=== PATIENT | male | born 1995 | race Caucasian/White ===

== ENCOUNTER 2021-01-14 17:52 | Inpatient (IN) | payer OTHER ==
[2021-01-14] MEDS ORDERED: IBUPROFEN 400 MG TABLET (FP) PO PRN (21:10)
[2021-01-14] MEDS ORDERED: ACETAMINOPHEN 325 MG TABLET (FP) PO PRN ×2 (21:10)
[2021-01-14] MEDS ORDERED: MENTHOL/PHENOL 1 EACH UD MM PRN (21:10)
[2021-01-14] MEDS ORDERED: MAGNESIUM CITRATE 300 ML BOTTLE PO PRN (21:10)
[2021-01-14] MEDS ORDERED: ONDANSETRON *ODT* 4 MG TABLET SL PRN (21:10)
[2021-01-14] MEDS ORDERED: MAG HYDROX/AL HYDROX/SIMETH 30 ML UNIT-DOSE CUP PO PRN (21:10)
[2021-01-14] MEDS ORDERED: BISMUTH SUBSALICYLATE 524 MG/30 ML UD PO PRN (21:10)
[2021-01-14] MEDS ORDERED: MAGNESIUM HYDROX 2400MG/30ML ORAL SUSPENSION 30 ML CUP PO PRN (21:10)
[2021-01-14] MEDS ORDERED: cloNIDine HCL 0.1 MG TABLET PO PRN (21:12)
[2021-01-14 22:51] VITALS: BMI 26.6
[2021-01-15] MEDS: MELATONIN 5 MG TABLETS PO SCH ×2 (00:55→22:06)
[2021-01-15] MEDS: THIAMINE HCL 100 MG TABLET (FP) PO SCH ×2 (00:55→22:06)
[2021-01-15] MEDS ORDERED: METHADONE HCL 10 MG TABLET (FOR DETOX USE ONLY) ONE (08:25)
[2021-01-15] MEDS ORDERED: METHADONE HCL 5 MG TABLET (FOR DETOX USE ONLY) ONE (08:25)
[2021-01-15] MEDS ORDERED: METHADONE (DETOX) 20 MG, METHADONE (DETOX) 5 MG PO ONE (10:00)
[2021-01-15] MEDS: PRENATAL VITAMINS W/ FOLIC ACID TABLET (FP) PO SCH (10:42)
[2021-01-15 12:02] LABS: HEMATOCRIT 39.9 % (35.4-49); HEMOGLOBIN 13.1 GM/dL (11.7-16.9); MCH 26.8 pg (25.7-33.7); MCHC 32.8 g/dl (32.0-35.9); MEAN CELL VOLUME 81.8 fl (80-96); PLATELET COUNT 223 K/MM3 (134-434); RBC 4.88 M/mm3 (4.00-5.60); RDW 14.8 % (11.9-15.9); WHITE BLOOD COUNT 7.9 K/mm3 (4.0-10.0)
[2021-01-15 12:13] LABS: POTASSIUM 4.2 mmol/L (3.5-5.1)
[2021-01-15 12:16] LABS: CALCIUM 9.3 mg/dL (8.5-10.1)
[2021-01-15 12:17] LABS: ALBUMIN 3.9 g/dl (3.4-5.0); BLOOD UREA NITROGEN 9.7 mg/dL (7-18)
[2021-01-15 12:20] LABS: CREATININE 0.8 mg/dL (0.55-1.3)
[2021-01-15 12:22] LABS: BILIRUBIN,TOTAL 0.5 mg/dL (0.2-1); TOT PROT 6.8 g/dl (6.4-8.2)
[2021-01-15] MEDS: NICOTINE POLACRILEX 2 MG GUM BUC PRN (18:30)
[2021-01-15] MEDS: METHOCARBAMOL 500 MG TABLET PO PRN (22:06)
[2021-01-15] MEDS: hydrOXYzine PAMOATE 25 MG CAPSULE (FP) PO PRN (22:06)
[2021-01-16] MEDS: NICOTINE POLACRILEX 2 MG GUM BUC PRN ×2 (08:45→12:58)
[2021-01-16] MEDS ORDERED: METHADONE HCL 10 MG TABLET (FOR DETOX USE ONLY) PO ONE (10:00)
[2021-01-16] MEDS: PRENATAL VITAMINS W/ FOLIC ACID TABLET (FP) PO SCH (10:43)
[2021-01-16] MEDS: hydrOXYzine PAMOATE 25 MG CAPSULE (FP) PO PRN (10:45)
[2021-01-16] MEDS: diazePAM 5 MG TABLET PO PRN ×3 (11:45→22:46)
[2021-01-16] MEDS: NICOTINE 21 MG/24 HOURS TOPICAL PATCH TD SCH (14:24)
[2021-01-16] MEDS: METHOCARBAMOL 500 MG TABLET PO PRN ×2 (18:09→23:30)
[2021-01-16] MEDS: MELATONIN 5 MG TABLETS PO SCH (22:46)
[2021-01-16] MEDS: THIAMINE HCL 100 MG TABLET (FP) PO SCH (22:46)
[2021-01-17] MEDS ORDERED: METHADONE HCL 5 MG TABLET (FOR DETOX USE ONLY) ONE (09:15)
[2021-01-17] MEDS ORDERED: METHADONE HCL 10 MG TABLET (FOR DETOX USE ONLY) ONE (09:16)
[2021-01-17 09:30] VITALS: TEMP 97.5
[2021-01-17] MEDS ORDERED: METHADONE (DETOX) 10 MG, METHADONE (DETOX) 5 MG PO ONE (10:00)
[2021-01-17] MEDS: METHOCARBAMOL 500 MG TABLET PO PRN (10:27)
[2021-01-17] MEDS: diazePAM 5 MG TABLET PO PRN (10:27)
[2021-01-17] MEDS: NICOTINE 21 MG/24 HOURS TOPICAL PATCH TD SCH (10:30)
[2021-01-17] MEDS: PRENATAL VITAMINS W/ FOLIC ACID TABLET (FP) PO SCH (10:30)
[2021-01-17] MEDS: NICOTINE POLACRILEX 2 MG GUM BUC PRN (11:06)
[2021-01-17 15:41] VITALS: BP 121/46; PULSE 80
[2021-01-18] MEDS ORDERED: METHADONE HCL 10 MG TABLET (FOR DETOX USE ONLY) PO ONE (10:00)
[2021-01-19] MEDS ORDERED: METHADONE HCL 5 MG TABLET (FOR DETOX USE ONLY) PO ONE (06:00)
== END 2021-01-17 15:52 | disposition home or self-care (01) | DRG 773 ==
LOC: YASAS 17:52 → Y6N 23:46
PROVIDERS: ADMIT Allergy & Immunology; ATTEND Allergy & Immunology
PROC: HZ2ZZZZ Detoxification Services for Substance Abuse Treatment (ICD-10-PCS; principal; 2021-01-14)
DX: F11.23 Opioid dependence with withdrawal (principal); F12.20 Cannabis dependence, uncomplicated; F17.210 Nicotine dependence, cigarettes, uncomplicated
CPT/HCPCS: 36415; 80053; 85027; 86780; C9803; J0735; U0003

== ENCOUNTER 2025-07-03 18:25 | Inpatient (IN) | payer OTHER ==
[2025-07-03 18:50] VITALS: BMI 24.0
[2025-07-03] MEDS ORDERED: NICOTINE POLACRILEX 2 MG GUM BUC PRN (20:02)
[2025-07-03] MEDS ORDERED: ACETAMINOPHEN 325 MG TABLET (FP) PO PRN (20:02)
[2025-07-03] MEDS ORDERED: DICYCLOMINE HCL 10 MG CAPSULE PO PRN (20:02)
[2025-07-03] MEDS ORDERED: guaiFENesin 600 MG TABLET.ER (FP) PO PRN (20:02)
[2025-07-03] MEDS ORDERED: BENZOCAINE/MENTHOL (CHLORASEPTIC ) LOZENGE MM PRN (20:02)
[2025-07-03] MEDS ORDERED: BENZONATATE 200 MG CAPSULE PO PRN (20:02)
[2025-07-03] MEDS ORDERED: BISMUTH SUBSALICYLATE 524 MG/30 ML PO PRN (20:02)
[2025-07-03] MEDS ORDERED: MAGNESIUM HYDROX 2400MG/30ML ORAL SUSPENSION 30 ML CUP PO PRN (20:02)
[2025-07-03] MEDS ORDERED: MAG HYDROX/AL HYDROX/SIMETH 30 ML UNIT-DOSE CUP PO PRN (20:02)
[2025-07-03] MEDS ORDERED: METHOCARBAMOL 500 MG TABLET PO PRN (20:02)
[2025-07-03] MEDS ORDERED: POLYETHYLENE GLYCOL (HEALTHYLAX) 3350 17 GM PACKET PO PRN (20:02)
[2025-07-03] MEDS ORDERED: NALOXONE (NARCAN) HCL 4 MG/0.1 ML SPRAY NS PRN (20:02)
[2025-07-03] MEDS ORDERED: hydrOXYzine PAMOATE 25 MG CAPSULE (FP) PO PRN (20:02)
[2025-07-03] MEDS ORDERED: ONDANSETRON *ODT* 4 MG TABLET SL PRN (20:02)
[2025-07-03] MEDS ORDERED: LOPERAMIDE HCL 2 MG CAPSULE PO PRN (20:02)
[2025-07-03] MEDS ORDERED: IBUPROFEN 400 MG TABLET (FP) PO PRN (20:02)
[2025-07-03] MEDS ORDERED: IBUPROFEN 600 MG TABLET (FP) PO PRN (20:02)
[2025-07-03 20:48] VITALS: PULSE 60
[2025-07-03] MEDS: MELATONIN 5 MG TABLETS PO SCH (22:59)
[2025-07-03] MEDS: THIAMINE 100 MG TABLET PO SCH (22:59)
[2025-07-04 07:08] VITALS: RESP 16
[2025-07-04 08:41] VITALS: BP 133/90; TEMP 97.7
[2025-07-04] MEDS ORDERED: NICOTINE POLACRILEX 2 MG GUM BUC PRN (09:06)
[2025-07-04] MEDS ORDERED: NICOTINE POLACRILEX 2 MG LOZENGE BC PRN (09:06)
[2025-07-04] MEDS: NICOTINE 14 MG/24 HOURS TOPICAL PATCH TD SCH (09:26)
[2025-07-04] MEDS: PRENATAL VITAMINS W/ FOLIC ACID TABLET (FP) PO SCH (09:30)
[2025-07-04] MEDS: NICOTINE 21 MG/24 HOURS TOPICAL PATCH TD SCH (09:36)
[2025-07-04] MEDS ORDERED: clonazePAM 0.5 MG ODT TABLETS SL PRN (11:00)
[2025-07-04 11:27] LABS: MCHC 31.7 g/dl (32.3-36.5); MEAN CELL VOLUME 82.0 fl (79.0-92.2); MEAN PLT VOLUME 10.3 fl (9.4-12.4); RDW 13.4 % (12.0-15.6)
[2025-07-04 12:43] LABS: GLUCOSE,RANDOM 98 mg/dL (74-106); TOT PROT 6.5 g/dl (6.4-8.2)
[2025-07-04 12:44] LABS: CO2 26 mmol/L (21-32)
[2025-07-04 12:45] LABS: ALK PHOS 46 U/L (40-150)
[2025-07-04 12:48] LABS: CREATININE 0.80 mg/dL (0.55-1.3); SGOT/AST 17 U/L (5-34); SGPT/ALT 16 U/L (0-55)
== END 2025-07-04 10:43 | disposition left against medical advice (07) | DRG 770 ==
LOC: YASAS 18:25 → UNDOADMIN 20:20 → Y6N 20:20 → UNDODISIN 07-04 10:43
PROVIDERS: ADMIT Neuromusculoskeletal Medicine & OMM; ATTEND Allergy & Immunology
PROC: HZ2ZZZZ Detoxification Services for Substance Abuse Treatment (ICD-10-PCS; principal; 2025-07-03)
DX: F11.20 Opioid dependence, uncomplicated (principal); F12.20 Cannabis dependence, uncomplicated; F17.210 Nicotine dependence, cigarettes, uncomplicated; F41.9 Anxiety disorder, unspecified; G47.00 Insomnia, unspecified
CPT/HCPCS: 36415; 80053; 80307; 85027; 86780; 93005; 93010